=== PATIENT | male | born 1960 | race African-American/Black ===

== ENCOUNTER 2017-04-18 22:34 | Emergency (ER) | payer OTHER ==
[~2017-04-18] VITALS: Ht 160 cm; Wt 75.0 kg
[~2017-04-18 22:34] MED LIST: ACCUMIS19; BLOOKIT15 XX; GLIP5 PO; GLUCOMTESTSTRIPS XX; INSU-174; LISI10 PO; LOPR50TA12 PO; NOVOLOGP2 SQ
[2017-04-18 23:04] VITALS: BP 142/82; PULSE 81; RESP 16; TEMP 98.1; O2SAT 99
[2017-04-18] MEDS ORDERED: INSULIN ASPART 1,000 UNITS/10 ML VIAL SQ ONE (23:30)
[2017-04-18] MEDS ORDERED: SODIUM CHLOR 0.9% 1000 ML INJ 1,000 ML IV ONE (23:30)
[2017-04-18] MEDS ORDERED: NOVOLOGP2 SQ (23:32)
[2017-04-18] MEDS ORDERED: LISI10TA3 PO (23:32)
[2017-04-18] MEDS ORDERED: METO-309 PO (23:32)
[2017-04-18] MEDS ORDERED: GLIP5TAB8 PO (23:32)
[2017-04-18 23:48] LABS: AUTOMATED NEUTROPHIL # 5.9 TH/MM3 (1.8-7.7); BASOPHIL # 0.1 TH/MM3 (0-0.2); BASOPHIL % 0.8 % (0.0-2.0); EOSINOPHIL # 0.2 TH/MM3 (0-0.4); EOSINOPHIL % 2.4 % (0.0-4.0); HEMATOCRIT 40.8 % (39.0-51.0); HEMO FLAGS DIFF FINAL; LYMPH % 24.7 % (9.0-44.0); LYMPHOCYTE # 2.3 TH/MM3 (1.0-4.8); MEAN CORPUSCULAR HEMOGLOBIN 23.6 PG (27.0-34.0); MEAN CORPUSCULAR HGB CONC 31.9 % (32.0-36.0); MONO % 7.5 % (0.0-8.0); NEUT % 64.6 % (16.0-70.0); PLATELET COUNT 175 TH/MM3 (150-450); RED BLOOD COUNT 5.51 MIL/MM3 (4.50-5.90); RED CELL DISTRIBUTION WIDTH 14.4 % (11.6-17.2); WHITE BLOOD COUNT 9.1 TH/MM3 (4.0-11.0)
--- NOTE | 2017-04-19 00:26 | PD ---
HPI Chief Complaint: Diabetic Time Seen by Provider: 23:01 Travel History International Travel<30 days: No Contact w/Intl Traveler<30days: No Traveled to known affect area: No History of Present Illness HPI 56-year-old man who presents emergency department complaining of elevated blood sugar. He states he was using a friend's glucometer and checked his blood sugar as he hasn't been feeling great and he hasn't checked his blood sugar while. He states he felt a little woozy. He also states over the past couple days stomachs felt more bloated than normal. Blood sugar was high and so he called the ambulance. No other complaints. History Past Medical History Narrative Medical Diabetes Alcohol abuse and cirrhosis Hypertension Tetanus Vaccination: Unknown Social History Alcohol Use: No Tobacco Use: Yes (2PPD) Allergies-Medications (Allergen,Severity, Reaction): Coded Allergies: No Known Allergies (Verified , 04/18/17) Reported Meds & Prescriptions Reported Meds & Active Scripts Active Reported Glipizide 5 Mg Tab 5 Mg PO BIDAC Take 30 minutes before a meal Novolog Inj (Insulin Aspart) 1,000 Unit/10 Ml Vial 1-9 Units SQ ACHS Max dose at bedtime:( )units; sugars less than 70,(0)units; sugars 150-199,(1) unit; sugars 200-249,(3) units; sugars 250-299,(5) units; sugars 300-349,(7) units; sugars greater than 349,(9) units Lisinopril 10 Mg Tab 10 Mg PO DAILY Lopressor (Metoprolol Tartrate) 50 Mg Tab 50 Mg PO DAILY Review of Systems Except as stated in HPI: all other systems reviewed are Neg Physical Exam Narrative GENERAL: Well-appearing 56-year-old man, no acute distress. SKIN: Focused skin assessment warm/dry. HEAD: Atraumatic. Normocephalic. EYES: Pupils equal and round. No scleral icterus. No injection or drainage. ENT: No nasal bleeding or discharge. Mucous membranes pink and moist. NECK: Trachea midline. No JVD. CARDIOVASCULAR: Regular rate and rhythm. No murmur appreciated. RESPIRATORY: No accessory muscle use. Clear to auscultation. Breath sounds equal bilaterally. GASTROINTESTINAL: Abdomen soft, non-tender, nondistended. Hepatic and splenic margins not palpable. MUSCULOSKELETAL: No obvious deformities. No clubbing. No cyanosis. No edema. NEUROLOGICAL: Awake and alert. No obvious cranial nerve deficits. Motor grossly within normal limits. Normal speech. PSYCHIATRIC: Appropriate mood and affect; insight and judgment normal. Data Data Last Documented VS Vital Signs Date Time Temp Pulse Resp B/P (MAP) Pulse Ox O2 Delivery O2 Flow Rate FiO2 04/19/17 00:28 84 16 129/81 (97) 100 Room Air 04/18/17 23:04 98.1 Orders Orders Complete Blood Count With Diff (04/18/17 23:20) Comprehensive Metabolic Panel (04/18/17 23:20) Iv Access Insert/Monitor (04/18/17 23:20) Sodium Chlor 0.9% 1000 Ml Inj (Ns 1000 M (04/18/17 23:30) Insulin Aspart Inj (Novolog Inj) (04/18/17 23:30) Labs Laboratory Tests Test 04/18/17 23:10 White Blood Count 9.1 TH/MM3 Red Blood Count 5.51 MIL/MM3 Hemoglobin 13.0 GM/DL Hematocrit 40.8 % Mean Corpuscular Volume 74.0 FL Mean Corpuscular Hemoglobin 23.6 PG Mean Corpuscular Hemoglobin Concent 31.9 % Red Cell Distribution Width 14.4 % Platelet Count 175 TH/MM3 Mean Platelet Volume 9.5 FL Neutrophils (%) (Auto) 64.6 % Lymphocytes (%) (Auto) 24.7 % Monocytes (%) (Auto) 7.5 % Eosinophils (%) (Auto) 2.4 % Basophils (%) (Auto) 0.8 % Neutrophils # (Auto) 5.9 TH/MM3 Lymphocytes # (Auto) 2.3 TH/MM3 Monocytes # (Auto) 0.7 TH/MM3 Eosinophils # (Auto) 0.2 TH/MM3 Basophils # (Auto) 0.1 TH/MM3 CBC Comment DIFF FINAL Differential Comment Blood Urea Nitrogen 47 MG/DL Creatinine 2.43 MG/DL Random Glucose 470 MG/DL Total Protein 7.9 GM/DL Albumin 3.6 GM/DL Calcium Level 9.0 MG/DL Alkaline Phosphatase 136 U/L Aspartate Amino Transf (AST/SGOT) 26 U/L Alanine Aminotransferase (ALT/SGPT) 52 U/L Total Bilirubin 0.3 MG/DL Sodium Level 126 MEQ/L Potassium Level 3.0 MEQ/L Chloride Level 88 MEQ/L Carbon Dioxide Level 25.8 MEQ/L Anion Gap 12 MEQ/L Estimat Glomerular Filtration Rate 34 ML/MIN [facility] Medical Decision Making Medical Screen Exam Complete: Yes Emergency Medical Condition: Yes Interpretation(s) LABS: CBC is unremarkable. CMP is remarkable for mildly elevated BUN/creatinine, glucose 470 Differential Diagnosis Hyperglycemia, infection, dehydration, other Narrative Course Medical decision making 56-year-old man presents with elevated blood sugar. Noncompliant with his diabetic medications. We'll check labs, IV fluid, insulin. Will renew his insulin prescription. Outpatient follow-up. Diagnosis Primary Impression: Hyperglycemia due to type 2 diabetes mellitus Scripts Insulin Aspart Inj (Novolog Inj) 1,000 Unit/10 Ml Vial 1-9 UNITS SQ ACHS for Blood Sugar Management, #10 ML 0 Refills Max dose at bedtime:( )units; sugars less than 70,(0)units; sugars 150-199,(1) unit; sugars 200-249,(3) units; sugars 250-299,(5) units; sugars 300-349,(7) units; sugars greater than 349,(9) units Prov: Rupesh Trotter MD 04/19/17 Disposition: 01 DISCHARGE HOME Condition: Stable Rupesh Trotter MD Apr 19, 2017 00:26
[2017-04-19 00:28] VITALS: BP 129/81; PULSE 84; RESP 16; O2SAT 100
[2017-04-19 00:54] LABS: ALKALINE PHOSPHATASE 136 U/L (45-117); ALT (GPT) 52 U/L (12-78); ANION GAP 12 MEQ/L (5-15); AST (GOT) 26 U/L (15-37); BICARBONATE 25.8 MEQ/L (21.0-32.0); BLOOD UREA NITROGEN 47 MG/DL (7-18); CHLORIDE 88 MEQ/L (98-107); GLOMERULAR FILTRATION RATE 34 ML/MIN (>89); SODIUM (NA) 126 MEQ/L (136-145); TOTAL BILIRUBIN ADULT 0.3 MG/DL (0.2-1.0)
[2017-04-19] MEDS ORDERED: NOVOLOGP2 SQ (01:24)
[2017-04-19 01:25] VITALS: BP_SYST 130; BP_SYST 132; BP_DIAS 68; BP_DIAS 77; PULSE 80; PULSE 82; RESP 16; RESP 18; O2SAT 98
== END 2017-04-19 02:25 | disposition home or self-care (01) ==
LOC: NEPE 22:34
DX: E11.65 Type 2 diabetes mellitus with hyperglycemia (principal); I10 Essential (primary) hypertension; K70.30 Alcoholic cirrhosis of liver without ascites; F10.10 Alcohol abuse, uncomplicated; F17.200 Nicotine dependence, unspecified, uncomplicated; Z91.14 Patient's other noncompliance with medication regimen; Z79.4 Long term (current) use of insulin; Z79.899 Other long term (current) drug therapy
CPT/HCPCS: 80053; 85025; 96360; 99284; J7030

== ENCOUNTER 2017-07-03 12:31 | Emergency (ER) | payer OTHER ==
[~2017-07-03] VITALS: Ht 157.5 cm; Wt 69.5 kg
[~2017-07-03 12:31] MED LIST changes: -ACCUMIS19; -BLOOKIT15 XX; -GLIP5 PO; +GLIP5TAB8 PO; -GLUCOMTESTSTRIPS XX; -INSU-174; -LISI10 PO; +LISI10TA3 PO; -LOPR50TA12 PO; +METO-309 PO
[2017-07-03 12:32] VITALS: BP 165/78; PULSE 118; RESP 20; TEMP 98.6; O2SAT 92
[2017-07-03] MEDS ORDERED: SODIUM CHLORIDE 0.9% FLUSH 10 ML FLUSH IV FLUSH PRN (13:15)
--- NOTE | 2017-07-03 13:15 | PD ---
HPI Chief Complaint: Diabetic Time Seen by Provider: 13:00 Travel History International Travel<30 days: No Contact w/Intl Traveler<30days: No Traveled to known affect area: No History of Present Illness HPI 56-year-old male with PMH of T2 DM, hypertension, alcoholic cirrhosis presents to the ED for evaluation of altered mental status. The patient's sister is at bedside and states that during the course of the morning the patient was unsure who his family members were and behaving strangely. She states that he lives with the family and sees them every day. On arrival to the ED the patient is alert to self, month and place. He states that he has been feeling a little dizzy but denies other somatic complaints. He endorses chronic cough, productive of "white cold." No worse today. He endorses an episode of urinary incontinence, states that he urinates "a lot." He denies headache, vision changes, chest pain, palpitations, shortness of breath, abdominal pain, nausea, vomiting, changes in bowel habits, problems with gait. He states that his niece gave him insulin this morning, as per usual. He denies alcohol or illicit drug use. He is unsure of his primary care provider. PFSH Past Medical History Arthritis: No Asthma: No Blood Disorders: No Heart Rhythm Problems: No Cancer: No Cardiovascular Problems: No High Cholesterol: No Chest Pain: No Congestive Heart Failure: No Cirrhosis: Yes COPD: No Cerebrovascular Accident: No Diabetes: Yes Patient Takes Glucophage: No GERD: No Genitourinary: No Headaches: No Hepatitis: No Hiatal Hernia: No Hypertension: Yes Immune Disorder: No Kidney Stones: No Musculoskeletal: No Neurologic: No Psychiatric: No Reproductive: No Respiratory: No Migraines: No Myocardial Infarction: No Renal Failure: No Seizures: No Ulcer: No Past Surgical History Abdominal Surgery: No Appendectomy: No Cardiac Surgery: No Cholecystectomy: No Ear Surgery: No Endocrine Surgery: No Eye Surgery: No Genitourinary Surgery: No Gynecologic Surgery: No Oral Surgery: No Thoracic Surgery: No Social History Alcohol Use: No Tobacco Use: Yes (2PPD) Substance Use: No Allergies-Medications (Allergen,Severity, Reaction): Coded Allergies: No Known Allergies (Verified Allergy, Unknown, 07/03/17) Reported Meds & Prescriptions Reported Meds & Active Scripts Active Novolog Inj (Insulin Aspart) 1,000 Unit/10 Ml Vial 1-9 Units SQ ACHS Max dose at bedtime:( )units; sugars less than 70,(0)units; sugars 150-199,(1) unit; sugars 200-249,(3) units; sugars 250-299,(5) units; sugars 300-349,(7) units; sugars greater than 349,(9) units Reported Glipizide 5 Mg Tab 5 Mg PO BIDAC Take 30 minutes before a meal Lisinopril 10 Mg Tab 10 Mg PO DAILY Lopressor (Metoprolol Tartrate) 50 Mg Tab 50 Mg PO DAILY Review of Systems Except as stated in HPI: all other systems reviewed are Neg Physical Exam Narrative GENERAL: Well-nourished, well-developed male in no acute distress. SKIN: Focused skin assessment warm/dry. HEAD: Normocephalic. EYES: No scleral icterus. No injection or drainage. NECK: Supple, trachea midline. No JVD or lymphadenopathy. CARDIOVASCULAR: Regular rate and rhythm without murmurs, gallops, or rubs. RESPIRATORY: Breath sounds clear and equal bilaterally. No accessory muscle use. GASTROINTESTINAL: Abdomen soft, non-tender, nondistended. Active bowel sounds. MUSCULOSKELETAL: No cyanosis, or edema. NEUROLOGICAL: Awake and alert. Cranial nerves II through XII intact. Motor and sensory grossly within normal limits. Five out of 5 muscle strength in all muscle groups. Normal speech. BACK: Nontender without obvious deformity. No CVA tenderness. Data Data Last Documented VS Vital Signs Date Time Temp Pulse Resp B/P (MAP) Pulse Ox O2 Delivery O2 Flow Rate FiO2 07/03/17 17:00 82 18 142/94 (110) 98 Room Air 07/03/17 12:32 98.6 Orders Orders Electrocardiogram (07/03/17 13:01) Ammonia (07/03/17 13:01) Complete Blood Count With Diff (07/03/17 13:01) Comprehensive Metabolic Panel (07/03/17 13:01) Creatine Kinase (Cpk) (07/03/17 13:01) Prothrombin Time / Inr (Pt) (07/03/17 13:01) Act Partial Throm Time (Ptt) (07/03/17 13:01) Troponin I (07/03/17 13:01) Urinalysis - C+S If Indicated (07/03/17 13:01) Chest, Single Ap (07/03/17 13:01) Ecg Monitoring (07/03/17 13:01) Iv Access Insert/Monitor (07/03/17 13:01) Oximetry (07/03/17 13:01) Sodium Chloride 0.9% Flush (Ns Flush) (07/03/17 13:15) Drug Screen, Random Urine (07/03/17 13:01) Alcohol (Ethanol) (07/03/17 13:01) Ct Brain W/O Iv Contrast(Rout) (07/03/17 13:01) Vascular Access Team Consult/P PRN (07/03/17 13:22) Vascular Poc Ultrasound (07/03/17 ) Beta Hydroxybutyrate (Acetone) (07/03/17 15:02) Sodium Chlor 0.9% 1000 Ml Inj (Ns 1000 M (07/03/17 15:15) Sodium Chlor 0.9% 1000 Ml Inj (Ns 1000 M (07/03/17 15:15) Insulin Human Regular Inj (Novolin R Inj (07/03/17 15:15) Insulin Human Regular Inj (Novolin R Inj (07/03/17 16:15) Sodium Chlor 0.9% 1000 Ml Inj (Ns 1000 M (07/03/17 17:30) Ed Discharge Order (07/03/17 18:20) Labs Laboratory Tests Test 07/03/17 13:55 07/03/17 14:51 White Blood Count 10.5 TH/MM3 Red Blood Count 5.66 MIL/MM3 Hemoglobin 13.8 GM/DL Hematocrit 43.8 % Mean Corpuscular Volume 77.3 FL Mean Corpuscular Hemoglobin 24.4 PG Mean Corpuscular Hemoglobin Concent 31.5 % Red Cell Distribution Width 15.2 % Platelet Count 190 TH/MM3 Mean Platelet Volume 10.4 FL Neutrophils (%) (Auto) 82.1 % Lymphocytes (%) (Auto) 10.6 % Monocytes (%) (Auto) 3.1 % Eosinophils (%) (Auto) 1.4 % Basophils (%) (Auto) 2.8 % Neutrophils # (Auto) 8.6 TH/MM3 Lymphocytes # (Auto) 1.1 TH/MM3 Monocytes # (Auto) 0.3 TH/MM3 Eosinophils # (Auto) 0.2 TH/MM3 Basophils # (Auto) 0.3 TH/MM3 CBC Comment AUTO DIFF Differential Total Cells Counted 100 Neutrophils % (Manual) 83 % Lymphocytes % 11 % Monocytes % 4 % Neutrophils # (Manual) 8.9 TH/MM3 Promyelocytes 2 % Differential Comment FINAL DIFF MANUAL Platelet Estimate NORMAL Platelet Morphology Comment NORMAL Prothrombin Time 10.7 SEC Prothromb Time International Ratio 1.1 RATIO Activated Partial Thromboplast Time 20.8 SEC Blood Urea Nitrogen 39 MG/DL Creatinine 2.28 MG/DL Random Glucose 817 MG/DL Total Protein 8.6 GM/DL Albumin 4.0 GM/DL Calcium Level 10.2 MG/DL Alkaline Phosphatase 165 U/L Aspartate Amino Transf (AST/SGOT) 13 U/L Alanine Aminotransferase (ALT/SGPT) 31 U/L Total Bilirubin 0.4 MG/DL Sodium Level 126 MEQ/L Potassium Level 4.5 MEQ/L Chloride Level 86 MEQ/L Carbon Dioxide Level 34.9 MEQ/L Anion Gap 5 MEQ/L Estimat Glomerular Filtration Rate 36 ML/MIN Ammonia 24 MCMOL/L Total Creatine Kinase 193 U/L Troponin I LESS THAN 0.02 NG/ML Ethyl Alcohol Level LESS THAN 3 MG/DL B-Hydroxybutyrate 0.31 MMOL/L Urine Color LIGHT-YELLOW Urine Turbidity CLEAR Urine pH 5.0 Urine Specific [place] 1.027 Urine Protein NEG mg/dL Urine Glucose (UA) 1000 mg/dL Urine Ketones NEG mg/dL Urine Occult Blood NEG Urine Nitrite NEG Urine Bilirubin NEG Urine Urobilinogen LESS THAN 2.0 MG/DL Urine Leukocyte Esterase NEG Urine RBC LESS THAN 1 /hpf Urine WBC 1 /hpf Microscopic Urinalysis Comment CATH-CULT NOT IND Urine Opiates Screen NEG Urine Barbiturates Screen NEG Urine Amphetamines Screen NEG Urine Benzodiazepines Screen NEG Urine Cocaine Screen NEG Urine Cannabinoids Screen NEG MDM Medical Decision Making Medical Screen Exam Complete: Yes Emergency Medical Condition: Yes Differential Diagnosis Hyperglycemia versus noncompliance versus pneumonia versus ACS versus TIA versus versus EtOH versus other Narrative Course 56-year-old male with PMH of T2 DM, hypertension, alcoholic cirrhosis presents to the ED for evaluation of altered mental status. The patient's sister is at bedside and states that during the course of the morning the patient was unsure who his family members were and behaving strangely. On arrival to the ED the patient is alert to self, month and place. He states that he has been feeling a little dizzy but denies other somatic complaints. He endorses chronic cough, productive of "white cold." No worse today. He endorses an episode of urinary incontinence, states that he urinates "a lot." He denies alcohol or illicit drug use. Patient's tachycardic, hypertensive on presentation, this resolves in the exam room. Physical exam reveals a thin black male in no acute distress. No focal neuro deficits. Answers questions appropriately. Chest CTAB. Abdomen soft and nontender. No lower extremity edema. EKG rate 92, sinus rhythm. MO interval 139, QRS 92, QTC 379. Normal axis. Peak T waves. Reviewed by Dr. Olea. CXR: No acute cardiopulmonary disease per radiology read. Troponin negative 1. WBC 10.5. Hemoglobin 13.8. Coags: INR 1.1. CMP: Sodium 126, chloride 86, BUN 39, creatinine 2.28. Glucose 817. Calcium 10.2. Ammonia 24. UA: Glucose 1000, no culture indicated. Beta hydroxybutyrate 0.31. Head CT: No acute intracranial abnormality. Patient was administered 2 L normal saline, 10 units glucose subcutaneous.I discussed the patient with Dr. Gooden for observation admission. She recommends 10u insulin IV with BG rechecks. I spoke with the patient's girlfriend, Aditi Mayorga, by phone. She states that the patient is self-sufficient, works and drives. The patient is oriented and appears capable of making his own decisions. He does not want to be admitted to the hospital or receive any further treatment. Just after this the patient' s sister arrives back to the ED. She states that the patient has not returned to his baseline and does not feel safe taking him home. She discusses the situation with the patient who agrees to stay for further evaluation. Unfortunately, she has to leave again but can return in an hour. Patient was administered an additional 10 units insulin IV and 1 L normal saline. Blood glucose 265 by fingerstick on recheck. Upon return to the ED the patient recognizes his sister, calls her by name, states his address as well as his girlfriend address. The patient's sister is satisfied that he has returned to baseline mental status. I spent a few minutes discussing the diabetic diet and the need to better control the patient's diabetes. The patient is instructed to see his primary care for possible adjustment to his medications regimen. The patient, his sister and girlfriend all indicated understanding of the discharge instructions and are agreeable to the care plan. The patient is stable and discharged home. Diagnosis Primary Impression: Hyperglycemia due to type 2 diabetes mellitus Qualified Codes: E11.65 - Type 2 diabetes mellitus with hyperglycemia; Z79.4 - FPC (current) use of insulin Referrals: Primary Care Physician Patient Instructions: General Instructions, Meal Planning with Diabetes Exchanges (DC) Additional Instructions: Monitor your blood sugar and use insulin as prescribed by your primary care provider. Follow-up with your primary care provider tomorrow. Return to the ED for any urgent or emergent medical condition Disposition: 07 AGAINST MEDICAL ADVICE Condition: Stable Kandice Real Jul 03, 2017 13:15
[2017-07-03 13:27] VITALS: O2SAT 96
[2017-07-03 13:40] VITALS: BP 118/73; PULSE 94; RESP 18; O2SAT 96
--- NOTE | 2017-07-03 14:10 | RADRPT ---
EXAM DATE/TIME: 07/03/2017 13:26 [facility] COMPARISON: CHEST SINGLE AP, January 26, 2016, 20:28. INDICATIONS : Dizziness; AMS. MEDICAL HISTORY : Hypertension. Cirrhosis. Diabetes. SURGICAL HISTORY : None. ENCOUNTER: Initial ACUITY: 1 day PAIN SCORE: 0/10 LOCATION: Bilateral chest FINDINGS: A single view of the chest demonstrates the lungs to be symmetrically aerated without evidence of mas s, infiltrate or effusion. The cardiomediastinal contours are unremarkable. Osseous structures are intact. CONCLUSION: 1. No acute cardiopulmonary disease. Hever Gore MD on July 03, 2017 at 14:08 Board Certified Radiologist. This report was verified electronically.
--- NOTE | 2017-07-03 14:13 | RADRPT ---
EXAM DATE/TIME: 07/03/2017 13:31 [facility] COMPARISON: CT BRAIN W/O CONTRAST, January 26, 2016, 21:04. INDICATIONS : Altered mental status for one day. RADIATION DOSE: 38.86 CTDIvol (mGy) MEDICAL HISTORY : Hypertension. Diabetes mellitus type 2. Cirrhosis. SURGICAL HISTORY : None. ENCOUNTER: Initial ACUITY: 1 day PAIN SCALE: 3/10 LOCATION: Bilateral cranial TECHNIQUE: Multiple contiguous axial images were obtained of the head. Using automated exposure control and adj ustment of the mA and/or kV according to patient size, radiation dose was kept as low as reasonably a chievable to obtain optimal diagnostic quality images. DICOM format image data is available electro nically for review and comparison. FINDINGS: CEREBRUM: The ventricles are normal for age. No evidence of midline shift, mass lesion, hemorrhage or acute in farction. No extra-axial fluid collections are seen. POSTERIOR FOSSA: The cerebellum and brainstem are intact. The 4th ventricle is midline. The cerebellopontine angle i s unremarkable. EXTRACRANIAL: The visualized portion of the orbits is intact. SKULL: The calvaria is intact. No evidence of skull fracture. CONCLUSION: 1. No acute intracranial abnormality. Hever Gore MD on July 03, 2017 at 14:10 Board Certified Radiologist. This report was verified electronically.
[2017-07-03 14:24] LABS: AUTOMATED NEUTROPHIL # 8.6 TH/MM3 (1.8-7.7); BASOPHIL # 0.3 TH/MM3 (0-0.2); BASOPHIL % 2.8 % (0.0-2.0); EOSINOPHIL # 0.2 TH/MM3 (0-0.4); EOSINOPHIL % 1.4 % (0.0-4.0); HEMATOCRIT 43.8 % (39.0-51.0); HEMOGLOBIN 13.8 GM/DL (13.0-17.0); LYMPH % 10.6 % (9.0-44.0); LYMPHOCYTE # 1.1 TH/MM3 (1.0-4.8); MEAN CELL VOLUME 77.3 FL (80.0-100.0); MEAN CORPUSCULAR HEMOGLOBIN 24.4 PG (27.0-34.0); MEAN CORPUSCULAR HGB CONC 31.5 % (32.0-36.0); MEAN PLATELET VOLUME 10.4 FL (7.0-11.0); MONO % 3.1 % (0.0-8.0); MONOCYTE # 0.3 TH/MM3 (0-0.9); NEUT % 82.1 % (16.0-70.0); PLATELET COUNT 190 TH/MM3 (150-450); RED BLOOD COUNT 5.66 MIL/MM3 (4.50-5.90); RED CELL DISTRIBUTION WIDTH 15.2 % (11.6-17.2); WHITE BLOOD COUNT 10.5 TH/MM3 (4.0-11.0)
[2017-07-03 14:42] LABS: INTERNATIONAL NORMALIZED RATIO 1.1 RATIO; PROTHROMBIN TIME - PATIENT 10.7 SEC (9.8-11.6)
[2017-07-03 14:56] LABS: ALKALINE PHOSPHATASE 165 U/L (45-117); ALT (GPT) 31 U/L (12-78); AST (GOT) 13 U/L (15-37); BICARBONATE 34.9 MEQ/L (21.0-32.0); BLOOD UREA NITROGEN 39 MG/DL (7-18); CALCIUM 10.2 MG/DL (8.5-10.1); CHLORIDE 86 MEQ/L (98-107); CREATININE 2.28 MG/DL (0.60-1.30); GLOMERULAR FILTRATION RATE 36 ML/MIN (>89); SODIUM (NA) 126 MEQ/L (136-145); TOTAL BILIRUBIN ADULT 0.4 MG/DL (0.2-1.0); TOTAL PROTEIN 8.6 GM/DL (6.4-8.2); TROPONIN I LESS THAN 0.02 NG/ML (0.02-0.05)
[2017-07-03 14:57] LABS: GLUCOSE,RANDOM 817 MG/DL (74-106)
[2017-07-03 15:05] LABS: BILIRUBIN, URINE NEG (NEG); BLOOD, URINE NEG (NEG); GLUCOSE,URINE 1000 mg/dL (NEG); KETONE, URINE NEG (NEG); NITRITE,URINE NEG (NEG); URINE COLOR LIGHT-YELLOW (YELLW/STRAW); URINE LEUKOCYTE ESTERASE NEG (NEG)
[2017-07-03] MEDS ORDERED: INSULIN HUMAN REGULAR 1,000 UNITS/10 ML VIAL SQ ONE (15:15)
[2017-07-03] MEDS ORDERED: SODIUM CHLOR 0.9% 1000 ML INJ 1,000 ML IV ONE ×3 (15:15→17:30)
[2017-07-03 15:18] VITALS: BP 125/79; PULSE 90; RESP 18; O2SAT 98
[2017-07-03 15:21] LABS: LYMPHOCYTES 11 % (9-44); MONOCYTES 4 % (0-8); NEUTROPHIL # MANUAL DIFF 8.9 TH/MM3 (1.8-7.7); POLYS (SEG NEUTROPHILS) 83 % (16-70); PROMYELOCYTES 2 % (0-0)
[2017-07-03] MEDS ORDERED: INSULIN HUMAN REGULAR 1,000 UNITS/10 ML VIAL IV PUSH ONE (16:15)
[2017-07-03 17:00] VITALS: BP 142/94; PULSE 82; RESP 18; O2SAT 98
[2017-07-03 18:43] VITALS: BP 118/73; PULSE 70; RESP 18; O2SAT 97
--- NOTE | 2017-07-05 12:21 | EKG ---
Date Performed: 07/03/2017 Time Performed: 13:41:53 PTAGE: 56 years EKG: Sinus rhythm MINIMAL ST DEPRESSION BORDERLINE ECG PREVIOUS TRACING : 07/09/2010 20.20 DOCTOR: Nat Mejia Interpretating Date/Time 07/05/2017 12:20:05
== END 2017-07-03 18:45 | disposition home or self-care (01) ==
LOC: NEPE 12:31
DX: E11.65 Type 2 diabetes mellitus with hyperglycemia (principal); I10 Essential (primary) hypertension; K70.30 Alcoholic cirrhosis of liver without ascites; F17.200 Nicotine dependence, unspecified, uncomplicated; Z79.4 Long term (current) use of insulin
CPT/HCPCS: 70450; 71010; 80053; 80307; 81001; 82010; 82140; 82550; 84484; 85007; 85027; 85610; 85730; 93005; 96361; 96372; 96374; 99285; J1815; J7030